=== PATIENT | female | born 1975 | race Two or more races ===

== ENCOUNTER 2025-04-07 12:46 | Emergency (ER) | payer OTHER ==
[~2025-04-07] VITALS: Ht 162.6 cm; Wt 133.7 kg
--- NOTE | 2025-04-07 13:00 | ED.PDOC ---
History of Present Illness HPI Comments 49-year-old female with PMHx Gastroparesis, HTN, PE presents with a chief complaint of weakness with associated nausea, vomiting, and diarrhea. Patient mentions that she is visiting [place] from [place] and does not have her Zofran with her. Patient also reports that she has potassium level issues and wants to check to make sure she is okay with her potassium levels. Time Seen by MD: 12:53 Reviewed Notes: Medications, Allergies Allergies: Coded Allergies: NO KNOWN ALLERGIES (Unverified , 04/07/25) Home Meds Active Scripts Ondansetron Odt 4MG Tab (ZOFRAN PO) 4 Mg Tb, 4 MG PO BS for 10 Days, #10 TAB ODT TAB-DISSOLVE IN MOUTH, THEN SWALLOW Prov:SARINA MEDRANO MD 04/07/25 Information Source: Patient Mode of Arrival: Ambulatory Severity: Moderate Timing: Days Duration: Since onset Prehospital treatment: None Past Medical History PAST MEDICAL HISTORY: HTN, PE Past Medical History (Other): Gastroporesis Surgical History: Cholecystectomy Surgical History (Other): Knee Replacement DIGITAL DIRECTOR History: Denies all DIGITAL DIRECTOR Hx Family History Family History: Reviewed,noncontributory to illness Social History Smoker: Non-Smoker Alcohol: Denies ETOH Use Drugs: Denies Drug Use Lives In: Home Constitutional: reports: weakness; denies: chills, diaphoresis, fatigue, fever, malaise, sweats, others EENTM: denies: blurred vision, double vision, ear bleeding, ear discharge, ear drainage, ear pain, ear ringing, eye pain, eye redness, hearing loss, mouth pain, mouth swelling, nasal discharge, nose bleeding, nose congestion, nose pain, photophobia, tearing, throat pain, throat swelling, voice changes, others Respiratory: denies: cough, hemoptysis, orthopnea, SOB at rest, shortness of breath, SOB with excertion, stridor, wheezing, others Cardiovascular: denies: chest pain, dizzy spells, diaphoresis, Dyspnea on exertion, edema, irregular heart beat, left arm pain, lightheadedness, palpitations, PND, syncope, others Gastrointestinal: reports: diarrhea, nausea, vomiting; denies: abdomen distended, abdominal pain, blood streaked bowels, constipated, dysphagia, d ifficulty swallowing, hematemesis, melena, poor appetite, poor fluid intake, rectal bleeding, rectal pain, others Genitourinary: denies: abnormal vagina bleeding, burning, dyspareunia, dysuria, flank pain, frequency, hematuria, incontinence, pain, , vagina discharge, urgency, others Neurological: denies: dizziness, fainting, headache, left sided numbness, left sided weakness, numbness, paresthesia, pre-existing deficit, right sided numbness, right sided weakness, seizure, speech problems, tingling, tremors, weakness, others Musculoskeletal: denies: back pain, gout, joint pain, joint swelling, muscle pain, muscle stiffness, neck pain, others Integumetry: denies: bruises, change in color, change in hair/nails, dryness, laceration, lesions, lumps, rash, wounds, others Allergic/Immunocompromised: denies: Difficulty Healing, Frequent Infections, Hives, Itching, others Hematologic/Lymphatic: denies: anemia, blood clots, easy bleeding, easy bruising, swollen glands, others Endocrine: denies: excessive hunger, excessive sweating, excessive thirst, excessive urination, flushing, intolerance to cold, intolerance to heat, unexplained weight gain, unexplained weight loss, others Psychiatric: denies: anxiety, bipolar disorder, depression, hopeless, panic disorder, schizophrenia, sleepless, suicidal, others All Other Systems: Reviewed and Negative Physical Exam General Appearance: Moderate Distress, Obese HEENT: Normal ENT Inspection, Pharynx Normal, TMs Normal Neck: Full Range of Motion, Non-Tender, Normal, Normal Inspection Respiratory: Chest Non-Tender, Lungs Clear, No Accessory Muscle Use, No Resp iratory Distress, Normal Breath Sounds Cardiovascular: No Edema, No JVD, No Murmur, No Gallop, Normal Peripheral Pulses, Regular Rate/Rhythm Breast Exam: Deferred Gastrointestinal: No Organomegaly, Non Tender, No Pulsatile Mass, Normal Bowel Sounds, Soft Genitalia: Deferred Pelvic: Deferred Rectal: Deferred Extremities: No calf tenderness, Normal capillary refill, Normal inspection, Normal range of motion, Non-tender, No pedal edema Musculoskeletal : Apperance: Normal Neurologic: Alert, small engine technician II-XII nml as Tested, No Motor Deficits, Normal Affect, Normal Mood, No Sensory Deficits Cerebellar Function: Normal Reflexes: Normal Skin: Dry, Normal Color, Warm Peripheral Pulses: 3+ Radial (R), 3+ Radial (L) Lymphatic: No Adenopathy Was a procedure done? Was a procedure done?: No Differential Dx Considerations may include: Gastroparesis Electrolyte imbalance X-Ray, Labs, Meds, VS Vital Signs Date Time Temp Pulse Resp B/P (MAP) Pulse Ox O2 Delivery O2 Flow Rate FiO2 04/07/25 14:27 104 18 121/77 (92) 94 04/07/25 14:27 104 18 94 Room Air 04/07/25 13:10 98.3 109 20 132/81 (98) 99 98.3 Lab Test 04/07/25 13:05 Range/Units Sodium Level 139 136-145 mmol/L Potassium Level 3.8 3.5-5.1 mmol/L Chloride Level 102 98-107 mmol/L Carbon Dioxide Level 26 20-31 mmol/L Anion Gap 11 5-15 Blood Urea Nitrogen 15 9-23 mg/dL Creatinine 1.09 H 0.550-1.02 mg/dL Glomerular Filtration Rate Calc 62 >90 mL/min BUN/Creatinine Ratio 13.8 10.0-20.0 Serum Glucose 132 H 74-106 mg/dL Calcium Level 10.9 H 8.7-10.4 mg/dL Patient alert. Complaining of nausea vomiting. She does have this disorder which can lead to hypokalemia. Vitals stable. Answering questions. Ambulating. No sign of any distress. Establish intravenous access. Was given fluids. Was given Zofran. Explained to the patient. Was told to follow up with her primary care physician. Was told to come back if there is any problem. Time of 1ST Reevaluation: 13:23 Reevaluation 1ST: Improved Patient Education/Counseling: Diagnosis, Treatment, Need For Follow Up Family Education/Counseling: No Family Present SEPSIS Sepsis Screen Physician Orders Urinalysis (04/07/25 12:57) Vital Signs Date Time Temp Pulse Resp B/P (MAP) Pulse Ox O2 Delivery O2 Flow Rate FiO2 04/07/25 14:27 104 18 121/77 (92) 94 04/07/25 14:27 104 18 94 Room Air 04/07/25 13:10 98.3 109 20 132/81 (98) 99 98.3 Departure 1 Departure Time of Disposition: 13:02 Impression: Primary Impression: Gastroparesis Disposition: 01 HOME / SELF CARE / HOMELESS Condition: Good e-Prescriptions Ondansetron Odt 4MG Tab (ZOFRAN PO) 4 Mg Tb 4 MG PO BS for 10 Days, #10 TAB ODT TAB-DISSOLVE IN MOUTH, THEN SWALLOW Prov: SARINA MEDRANO MD 04/07/25 Discharged With: Self Critical Care Note Critical Care Time?: No Stability Stability form required: No Heart Score Heart Score: Heart Score Response (Comments) Value History N/A 0 EKG N/A 0 Age N/A 0 Risk Factors N/A 0 Troponin N/A 0 Total 0 I personally scribed for SARINA MEDRANO MD ([email or web address]) on 04/07/25 at 13:00. Electronically submitted by Sukhwinder Hurt ([email or web address]). SARINA MEDRANO MD Apr 07, 2025 13:00
[2025-04-07] MEDS ORDERED: ZOFR4T PO (13:03)
[2025-04-07 13:45] LABS: Chloride 102 mmol/L (98-107); Potassium 3.8 mmol/L (3.5-5.1); Sodium 139 mmol/L (136-145)
[2025-04-07 13:46] LABS: Anion Gap 11 (5-15); Carbon Dioxide 26 mmol/L (20-31)
[2025-04-07 13:52] LABS: BUN/Creatinine Ratio 13.8 (10.0-20.0); Blood Urea Nitrogen 15 mg/dL (9-23)
[2025-04-07 13:59] LABS: Calcium 10.9 mg/dL (8.7-10.4); Glucose 132 mg/dL (74-106)
[2025-04-07] MEDS: ONDANSETRON HCL 4 MG/2 ML VIAL IV ONE (14:59)
[2025-04-07] MEDS: SODIUM CHLORIDE 0.9% 1,000 ML IV ONE (15:00)
[2025-04-07 15:06] VITALS: PULSE 94; RESP 16; O2SAT 97
[2025-04-07] MEDS: HYDROcodone-ACET 10/325MG TAB PO ONE (15:19)
[2025-04-07 15:45] VITALS: BP 110/74; PULSE 76; RESP 16; TEMP 98.1; O2SAT 97
== END 2025-04-07 15:47 | disposition home or self-care (01) ==
LOC: ER 12:46
DX: K31.84 Gastroparesis (principal); I10 Essential (primary) hypertension; Z96.659 Presence of unspecified artificial knee joint; Z90.49 Acquired absence of other specified parts of digestive tract; Z79.899 Other long term (current) drug therapy
CPT/HCPCS: 36415; 80048; 96361; 96374; 99283; J2405; J7030

== ENCOUNTER 2025-04-09 00:46 | Emergency (ER) | payer OTHER ==
[~2025-04-09] VITALS: Ht 162.6 cm; Wt 134.5 kg
[~2025-04-09 00:46] MED LIST: ZOFR4T PO
[2025-04-09 00:56] VITALS: BP 116/77; PULSE 111; RESP 16; TEMP 98; O2SAT 96
[2025-04-09] MEDS ORDERED: HYDROmorphone HCL 2 MG/ML VL/or syr IM ONE (01:30)
[2025-04-09] MEDS ORDERED: METOCLOPRAMIDE HCL 5MG/ml INJ 2ml VIAL IM ONE (01:30)
[2025-04-09] MEDS: IOHEXOL 300 MG/ML 100ML BOTTLE IJ ONE (01:56)
== END 2025-04-09 02:21 | disposition left against medical advice (07) ==
LOC: ER 00:46
DX: R11.2 Nausea with vomiting, unspecified (principal); R19.7 Diarrhea, unspecified; Z53.21 Procedure and treatment not carried out due to patient leaving prior to being seen by health care provider

== ENCOUNTER 2025-04-10 20:40 | Inpatient (IN) | payer OTHER ==
[~2025-04-10] VITALS: Ht 162.6 cm; Wt 132.9 kg
--- NOTE | 2025-04-10 20:53 | ED.PDOC ---
SOB-HPI HPI Comments HPI: This is a 49 year old female RADHAA presenting to the ED with chief complaint of SOB. Patient reports that she has been experiencing SOB with associated nausea, body aches, chills, and poor appetite for the past 3 days. Patient relays that she was seen yesterday and on 04/07 for problems with her gastroparesis including abdominal pain, which has continued up until now, not resolving with Reglan or Zofran. EMS states that they provided the patient Zofr an on route to the ED. Patient notes that she has no sick contacts at home and she has been utilizing an inhaler with no relief in symptoms. Patient denies any chest pain, dizziness, headache, fever, cough, or vomiting. Initial Vitals BP: 113/65 HR: 109 RR: 16 O2 Sat: 93% on room air Temp: 98.0 F Past Medical history: HTN, Gastroparesis, PE x 2014 Past Surgical history: Cholecystectomy, Bilateral knee replacement, Left radial nerve surgery x2, Bilateral foot surgery Medications: Zofran, Reglan Social History: Denies smoking, ETOH, and drug use. Allergies: NKDA HPI: Poor Historian. Past Medical History: Past Surgical History: REVIEW OF SYSTEMS: CONSTITUTIONAL: Denies acute: fever, diaphoresis, generalized weakness. HEAD: Denies acute: headache, photophobia Eyes: Denies acute: Double vision, vision loss, eye pain, eye discharge. EARS: Denies acute: tinnitus, hearing loss, ear discharge, ear pain, THROAT: Denies acute: sore throat, swelling, difficulty swallowing , pain with sw allowing, change in voice. NECK: Denies acute: neck pain, neck swelling, stiff neck. HEART: Denies acute : chest pain, palpitations, LUNGS: Denies acute: wheezing, cough, hemoptysis ABDOMEN: Denies acute: Vomiting, diarrhea, melena , hematemesis, hematochezia SKIN: Denies acute: rash, redness, lesions, itchiness. EXTREMITIES: Denies acute: calf pain, numbness, tingling, weakness, denies pain in extremity. Denies acute: Low back pain. Neuro: Denies acute: focal neurological deficit, motor or sensory focal neurological deficit, tremors, seizure like activity, confusion, dizziness, change in mental status, loss of bowel or bladder function, cauda equina like symptoms. : Denies acute: dysuria, hematuria, flank pain, increase in urinary frequency. PSYCH: Denies acute: hallucination, suicidal ideation, homicidal ideation. FEMALE: Denies acute: abnormal vaginal bleeding, foul odor, unusual discharge. PHYSICAL EXAM: General: ----[id number]----acute distress, awake and alert. Head: normocephalic, atraumatic. Neck: supple, trachea is midline, no swelling. Throat: Normal phonation. Eyes:, no erythema, no purulent discharge, no proptosis, no icterus. Heart: regular tachycardia, no significant murmur appreciated. Lungs: no apparent respiratory distress, Able to speak in full sentences. No wheezing, no rhonchi, no crackles. No stridors Clear to auscultation bilaterally. Abdomen: Nonspecific generalized tender to palpation, non distended, soft, no guarding, no rebound, + bowel sounds. Obese Neuro: Awake, Alert, oriented to name, self, situation, follows commands GCS=15. Speech is normal. Skin: no petechia, no purpura, no cyanosis, non-pale, not jaundice. Lower extremities: --no - Pitting edema no deformity, no focal swelling, no calf TTP. Makes eye contact. moves all four extremities. Face: no apparent facial droop. ED COURSE: DISCLAIMER: This medical document was created using an electronic medical record system with voice recognition software and computerized dictation system. Although this document has been carefully reviewed, there might still be some phonetic and typographical errors. Occasional wrong-word or "sound-alike" substitutions may have occurred due to the inherent limitations of voice recognition software. These areas are purely typographical due to imperfections of the software programs and do not reflect any compromise in the patient's medical care. Please read the chart carefully and recognize, using context, where these substitutions have occurred. Time Seen by MD: 20:50 Reviewed notes: Medications, Allergies Information Source: Patient, Emergency Med Personnel Mode of Arrival: EMS Was a procedure done? Was a procedure done?: No X-Ray, Labs, Meds, VS Vital Signs Date Time Temp Pulse Resp B/P (MAP) Pulse Ox O2 Delivery O2 Flow Rate FiO2 04/10/25 23:48 97.9 105 14 130/70 (90) 92 97.9 04/10/25 20:52 98.0 116 16 113/65 (81) 93 98.0 04/10/25 20:44 109 Lab Test 04/11/25 00:35 04/11/25 00:30 04/11/25 00:22 04/10/25 22:44 Range/Units Urine Color Yellow Yellow Urine Clarity Ex.turbid Clear Urine pH 6.0 5.0-9.0 Urine Specific [place] 1.032 1.001-1.035 Urine Protein 2+ H Negative Urine Ketones 2+ H Negative Urine Blood 1+ H Negative /uL Urine Nitrite Negative Negative Urine Bilirubin 1+ H Negative Urine Urobilinogen 4 H Negative mg/dL Urine Leukocyte Esterase Trace Negative /uL Urine RBC 65 0 - 4 /hpf Urine Microscopic WBC 22 H 0-5 /HPF Urine Squamous Epithelial Cells Mod <5 /hpf Urine Bacteria None seen None Seen /hpf Urine Hyaline Casts Many 0 - 2 /lpf Urine Mucus Few None Seen Urine Glucose Normal Normal mg/dL Influenza Type A Antigen Negative Negative Influenza Type B Antigen Negative Negative SARS-CoV-2 Antigen (Rapid) Negative NEGATIVE Troponin I High Sensitivity 4 5 </=34 ng/L Test 04/10/25 21:47 Range/Units White Blood Count 17.9 H 4.4-10.8 10^3/uL Red Blood Count 6.11 H 4.0-5.20 10^6/uL Hemoglobin 15.8 12.2-16.2 g/dL Hematocrit 48.2 H 36.0-46.0 % Mean Corpuscular Volume 78.9 L 80.0-100.0 fL Mean Corpuscular Hemoglobin 25.8 L 28.0-32.0 pg Mean Corpuscular Hemoglobin Concent 32.7 32.0-36.0 g/dL Red Cell Distribution Width 17.6 H 11.8-14.3 % Platelet Count 483 H 140-450 10^3/uL Mean Platelet Volume 7.7 6.9-10.8 fL Neutrophils (%) (Auto) 84.7 H 37.0-80.0 % Lymphocytes (%) (Auto) 11.7 10.0-50.0 % Monocytes (%) (Auto) 3.3 0.0-12.0 % Eosinophils (%) (Auto) 0.0 0.0-7.0 % Basophils (%) (Auto) 0.3 0.0-2.0 % Neutrophils # (Auto) 15.1 H 1.6-8.6 10 ^3/uL Lymphocytes # (Auto) 2.1 0.4-5.4 10 ^3/uL Monocytes # (Auto) 0.6 0-1.3 10 ^3/uL Eosinophils # (Auto) 0 0-0.8 10 ^3/uL Basophils # (Auto) 0.1 0-0.2 10 ^3/uL Nucleated Red Blood Cells 0.0 % Sodium Level 138 136-145 mmol/L Potassium Level 3.2 L 3.5-5.1 mmol/L Chloride Level 99 98-107 mmol/L Carbon Dioxide Level 24 20-31 mmol/L Anion Gap 15 5-15 Blood Urea Nitrogen 20 9-23 mg/dL Creatinine 1.57 #H 0.550-1.02 mg/dL Glomerular Filtration Rate Calc 40 >90 mL/min BUN/Creatinine Ratio 12.7 10.0-20.0 Serum Glucose 128 H 74-106 mg/dL Lactic Acid Level 1.4 0.4-2.0 mmol/L Calcium Level 11.4 H 8.7-10.4 mg/dL Magnesium Level 1.9 1.6-2.6 mg/dL Total Bilirubin 0.4 0.2-1.0 mg/dL Aspartate Amino Transferase (AST) 29 13-40 U/L Alanine Aminotransferase (ALT) 33 7-40 U/L Alkaline Phosphatase 120 H 46-116 U/L Troponin I High Sensitivity 5 </=34 ng/L B-Type Natriuretic Peptide 3.46 0-100 pg/mL Total Protein 8.7 H 5.7-8.2 g/dL Albumin 5.5 H 3.2-4.8 g/dL Lipase 43 12-53 U/L Current Medications Medications (Trade) Dose Ordered Sig/Nikhil Route Start Time Stop Time Status Last Admin Sodium Chloride 1,000 ml @ 1,000 mls/hr Q1H ONCE IV 04/10/25 21:30 04/10/25 22:29 DC 04/10/25 22:35 Metoclopramide HCl (Reglan Injection) 5 mg ONCE ONCE IV 04/10/25 21:30 04/10/25 21:31 DC 04/10/25 22:32 [place] [address] Ph: [phone] DIAGNOSTIC IMAGING Diagnostic Imaging Report : [id number] Signed PATIENT: ESPERANZA HERNANDEZ ACCT: [id number] UNIT: [id number] : 1975 LOC: ER ROOM / BED: / AGE / SEX: 49 / F ADM STATUS: REG ER SERVICE 22 ORDERING PHYSICIAN: WESLEY MACIAS DO PROCEDURE(s): CXRP - CHEST PORTABLE REASON: sob/resp symptoms ORDER NUMBER(s): [id number], ACCESSION NUMBER(s): [id number] CHEST RADIOGRAPH Indication: sob/resp symptoms Technique: Single frontal view of the chest was obtained Comparison: None FINDINGS: Lines and Tubes: None Lungs: No focal consolidation. Pleura: No effusion. No pneumothorax. Cardiomediastinal contours: Unremarkable Bones: No acute osseous abnormality. IMPRESSION: 1. No acute cardiopulmonary disease. ATED BY: ALBERTINA KRAMER Jr., DO DICTATED DATE/TIME: 04/10/252252 SIGNED BY: ALBERTINA KRAMER Jr., SIGNED DATE/TIME: 04/10/252252 CC: [place] [address] Ph: [phone] DIAGNOSTIC IMAGING Diagnostic Imaging Report : [id number] Signed PATIENT: ESPERANZA HERNANDEZ ACCT: [id number] UNIT: [id number] : 1975 LOC: ER ROOM / BED: / AGE / SEX: 49 / F ADM STATUS: REG ER SERVICE 22 ORDERING PHYSICIAN: WESLEY MACIAS DO PROCEDURE(s): ABPL - CT AB PEL WO CON-NO ORAL OR IV REASON: gastroparesis, nausea, abd pain ORDER NUMBER(s): [id number], ACCESSION NUMBER(s): [id number] Exam: CT CT AB PEL WO CON-NO ORAL OR IV History: gastroparesis, nausea, abd pain Comparison Study: None Technique: Multidetector spiral CT of the abdomen was performed from lung bases to pubic symphysis. Imaging was performed without IV contrast. Axial, coronal and sagittal multiplanar reformats were obtained from the axial data set by the technologist. Radiation Dose : 1. Abdomen/Pelvis: CTDIvol 27.11 mGy, DLP 1518.04 mGy*cm. Findings: Evaluation of solid organs is limited due to lack of intravenous contrast use. Lung Bases: No acute or significant lung base finding. Normal heart size. No pleural or pericardial effusion. Liver: The liver is enlarged, measuring 19.5 cm in craniocaudal dimension.. No focal lesions. Gallbladder and Biliary Tree: Status post cholecystectomy. Spleen: Unremarkable Pancreas: The pancreas is grossly normal in appearance. Adrenal Glands: Unremarkable Kidneys: Kidneys are grossly normal without calculi or hydronephrosis. Bladder: Grossly unremarkable for degree of distention. Bowel: Small hiatal hernia and fluid-filled distal esophagus. The stomach is grossly normal in appearance. Small bowel and colon are normal in caliber and distribution. The appendix is not visualized; however, no secondary findings of acute appendicitis identified. Ascites: Absent Lymphadenopathy: No mesenteric, retroperitoneal or periportal lymphadenopathy. Abdominal Wall and Mesentery: Unremarkable. Vasculature: The visualized abdominal aorta is normal in size and caliber. Evaluation of abdominal and pelvic vessels is limited due to lack of intravenous contrast. Pelvic Organs: Unremarkable Musculoskeletal: No aggressive focal bony lesions, acute fractures or dislocation. IMPRESSION: 1. No acute abdominal or pelvic findings. 2. Hepatomegaly. 3. Small hiatal hernia and fluid-filled distal esophagus. Radiation optimization: All CT scans at this facility use at least one of these dose optimization techniques: automated exposure control mA and/or kV adjustment per patient size (includes targeted exams where dose is matched to clinical indication) or iterative reconstruction. ATED BY: RONAK COFFEY MD DICTATED DATE/TIME: 04/10/252317 SIGNED BY: RONAK COFFEY MD SIGNED DATE/TIME: 04/10/252317 CC: Reevaluation 1ST: Unchanged Patient Education/Counseling: Diagnosis, Treatment Family Education/Counseling: No Family Present Departure 1 Departure Time of Disposition: 23:37 Impression: Primary Impression: Leukocytosis Additional Impressions: Abdominal pain UTI (urinary tract infection) Disposition: ADMITTED INPATIENT Admit to: Tele Condition: Guarded Discharged With: Self Critical Care Note Critical Care Time?: No I personally scribed for WESLEY MACIAS DO ([email or web address]) on 04/10/25 at 20:53. Electronically submitted by Jerome Porras ([email or web address]). I personally scribed for WESLEY MACIAS DO ([email or web address]) on 04/11/25 at 01:35. Electronically submitted by Gene Centeno ([email or web address]). WESLEY MACIAS DO Apr 10, 2025 20:53
[2025-04-10 22:11] LABS: Hematocrit 48.2 % (36.0-46.0); Hemoglobin 15.8 g/dL (12.2-16.2); Mean Corpuscular Hemoglobin 25.8 pg (28.0-32.0); Mean Corpuscular Volume 78.9 fL (80.0-100.0); Nucleated Red Blood Cells % 0.0 %
[2025-04-10 22:26] LABS: Alanine Aminotransferase 33 U/L (7-40); Anion Gap 15 (5-15); BUN/Creatinine Ratio 12.7 (10.0-20.0); Bilirubin, Total 0.4 mg/dL (0.2-1.0); Blood Urea Nitrogen 20 mg/dL (9-23); Carbon Dioxide 24 mmol/L (20-31); Chloride 99 mmol/L (98-107); Magnesium 1.9 mg/dL (1.6-2.6); Sodium 138 mmol/L (136-145)
[2025-04-10 22:27] LABS: Albumin 5.5 g/dL (3.2-4.8); Alkaline Phosphatase 120 U/L (46-116); Calcium 11.4 mg/dL (8.7-10.4); Glucose 128 mg/dL (74-106); Potassium 3.2 mmol/L (3.5-5.1); Total Protein 8.7 g/dL (5.7-8.2)
[2025-04-10] MEDS: METOCLOPRAMIDE HCL 5MG/ml INJ 2ml VIAL IV ONE (22:32)
[2025-04-10] MEDS: SODIUM CHLORIDE 0.9% 1,000 ML IV ONE (22:35)
--- NOTE | 2025-04-10 22:55 | DVH ---
CHEST RADIOGRAPH Indication: sob/resp symptoms Technique: Single frontal view of the chest was obtained Comparison: None FINDINGS: Lines and Tubes: None Lungs: No focal consolidation. Pleura: No effusion. No pneumothorax. Cardiomediastinal contours: Unremarkable Bones: No acute osseous abnormality. IMPRESSION: 1. No acute cardiopulmonary disease.
--- NOTE | 2025-04-10 23:21 | DVH ---
Exam: CT CT AB PEL WO CON-NO ORAL OR IV History: gastroparesis, nausea, abd pain Comparison Study: None Technique: Multidetector spiral CT of the abdomen was performed from lung bases to pubic symphysis. I maging was performed without IV contrast. Axial, coronal and sagittal multiplanar reformats were obta ined from the axial data set by the technologist. Radiation Dose : 1. Abdomen/Pelvis: CTDIvol 27.11 mGy, DLP 1518.04 mGy*cm. Findings: Evaluation of solid organs is limited due to lack of intravenous contrast use. Lung Bases: No acute or significant lung base finding. Normal heart size. No pleural or pericardial effusion. Liver: The liver is enlarged, measuring 19.5 cm in craniocaudal dimension.. No focal lesions. Gallbladder and Biliary Tree: Status post cholecystectomy. Spleen: Unremarkable Pancreas: The pancreas is grossly normal in appearance. Adrenal Glands: Unremarkable Kidneys: Kidneys are grossly normal without calculi or hydronephrosis. Bladder: Grossly unremarkable for degree of distention. Bowel: Small hiatal hernia and fluid-filled distal esophagus. The stomach is grossly normal in appear ance. Small bowel and colon are normal in caliber and distribution. The appendix is not visualized; h owever, no secondary findings of acute appendicitis identified. Ascites: Absent Lymphadenopathy: No mesenteric, retroperitoneal or periportal lymphadenopathy. Abdominal Wall and Mesentery: Unremarkable. Vasculature: The visualized abdominal aorta is normal in size and caliber. Evaluation of abdominal a nd pelvic vessels is limited due to lack of intravenous contrast. Pelvic Organs: Unremarkable Musculoskeletal: No aggressive focal bony lesions, acute fractures or dislocation. IMPRESSION: 1. No acute abdominal or pelvic findings. 2. Hepatomegaly. 3. Small hiatal hernia and fluid-filled distal esophagus. Radiation optimization: All CT scans at this facility use at least one of these dose optimization tad hniques: automated exposure control mA and/or kV adjustment per patient size (includes targeted exam s where dose is matched to clinical indication) or iterative reconstruction.
[2025-04-10] MEDS: fentaNYL CITRATE 100 MCG/2 ML VL IV ONE (23:45)
[2025-04-11 01:14] LABS: Urine Protein, UAD 2+ (Negative)
[2025-04-11 01:20] LABS: COVID19 ANTIGEN SOFIA FIA NEGATIVE (NEGATIVE)
[2025-04-11] MEDS: POTASSIUM CHL 20 Meq TABLET PO ONE (03:48)
[2025-04-11] MEDS: HYDROcodone-ACET 5/325MG TAB PO ONE (03:48)
[2025-04-11] MEDS: cefTRIAXone 1GM/50ML D5W 50 ML IV ONE (03:48)
--- NOTE | 2025-04-11 03:57 | DVHHP2 ---
History of Present Illness Reason for Visit: Abdominal pain History of Present Illness 49-year-old female presents for evaluation of abdominal pain. Patient with a history of gastroparesis reports a three day history of lower abdominal pain with associated nausea, vomiting and diarrhea. Reports occasional chills. No hematemesis or melena. No other acute complaints. Past Medical History Diabetes mellitus, gastroparesis, hypertension Past Surgical History Bilateral knee replacement, cholecystectomy, foot surgery Smoke: No ALCOHOL: none Drugs: None Lives: with Family Review of Systems Review of Systems Review of systems are currently negative otherwise addressed in HPI. Allergies: Coded Allergies: Ketorolac (Verified Allergy, Severe, hives, 04/07/25) Morphine (Verified Allergy, Severe, hives, 04/07/25) Medications Current Medications Medications Dose Ordered Sig/Nikhil Route Start Time Stop Time Status Last Admin Dose Admin Metoclopramide HCl 5 mg Q8HR IV 04/11/25 06:00 UNV Ondansetron HCl 4 mg Q6HPRN PRN IV 04/11/25 04:00 UNV Diagnostic Test (Pha) 1 strip ACHS 04/11/25 07:00 UNV Insulin Human Regular ACHS SC 04/11/25 07:00 UNV Dextrose 50 ml UD PRN IV 04/11/25 04:00 UNV Acetaminophen/ Hydrocodone Bitart 1 tab Q4HP PRN PO 04/11/25 04:00 UNV Temazepam 15 mg QHSP PRN PO 04/11/25 04:00 UNV Ondansetron HCl 4 mg Q4HP PRN IV 04/11/25 04:00 UNV Acetaminophen 650 mg Q6HP PRN PO 04/11/25 04:00 UNV Pantoprazole Sodium 40 mg DAILY IV 04/11/25 10:00 UNV Exam Vital Signs Vital Signs Date Time Temp Pulse Resp B/P (MAP) Pulse Ox O2 Delivery O2 Flow Rate FiO2 04/11/25 03:34 100 14 94 Room Air 04/11/25 03:34 97.8 142/84 (103) 97.8 Exam Gen: 49-year-old female in mild distress Skin: Warm, dry, normal color and texture, no rash. HEENT: Normocephalic atraumatic, mucous membranes moist and pink. Neck: Cervical and supraclavicular nodes normal without enlargement, trachea is midline, thyroid gland is normal without masses. Pulmonary: Clear to auscultation and percussion bilaterally. Cardiac: Regular rate and rhythm. No murmur Abdomen: Soft, lower abdominal tenderness, nondistended, bowel sounds present all 4 quadrants, no guarding, no rigidity, no organomegaly. Extremities: No cyanosis, clubbing, no edema Neuro: Cranial nerves II through XII grossly intact, normal affect and speech, no focal motor deficits. Labs/Xrays ORDERING PHYSICIAN: WESLEY MACIAS DO PROCEDURE(s): CXRP - CHEST PORTABLE REASON: sob/resp symptoms ORDER NUMBER(s): [id number], ACCESSION NUMBER(s): [id number] CHEST RADIOGRAPH Indication: sob/resp symptoms Technique: Single frontal view of the chest was obtained Comparison: None FINDINGS: Lines and Tubes: None Lungs: No focal consolidation. Pleura: No effusion. No pneumothorax. Cardiomediastinal contours: Unremarkable Bones: No acute osseous abnormality. IMPRESSION: 1. No acute cardiopulmonary disease. RING PHYSICIAN: WESLEY MACIAS DO PROCEDURE(s): ABPL - CT AB PEL WO CON-NO ORAL OR IV REASON: gastroparesis, nausea, abd pain ORDER NUMBER(s): [id number], ACCESSION NUMBER(s): [id number] Exam: CT CT AB PEL WO CON-NO ORAL OR IV History: gastroparesis, nausea, abd pain Comparison Study: None Technique: Multidetector spiral CT of the abdomen was performed from lung bases to pubic symphysis. Imaging was performed without IV contrast. Axial, coronal and sagittal multiplanar reformats were obtained from the axial data set by the technologist. Radiation Dose : 1. Abdomen/Pelvis: CTDIvol 27.11 mGy, DLP 1518.04 mGy*cm. Findings: Evaluation of solid organs is limited due to lack of intravenous contrast use. Lung Bases: No acute or significant lung base finding. Normal heart size. No pleural or pericardial effusion. Liver: The liver is enlarged, measuring 19.5 cm in craniocaudal dimension.. No focal lesions. Gallbladder and Biliary Tree: Status post cholecystectomy. Spleen: Unremarkable Pancreas: The pancreas is grossly normal in appearance. Adrenal Glands: Unremarkable Kidneys: Kidneys are grossly normal without calculi or hydronephrosis. Bladder: Grossly unremarkable for degree of distention. Bowel: Small hiatal hernia and fluid-filled distal esophagus. The stomach is grossly normal in appearance. Small bowel and colon are normal in caliber and distribution. The appendix is not visualized; however, no secondary findings of acute appendicitis identified. Ascites: Absent Lymphadenopathy: No mesenteric, retroperitoneal or periportal lymphadenopathy. Abdominal Wall and Mesentery: Unremarkable. Vasculature: The visualized abdominal aorta is normal in size and caliber. Evaluation of abdominal and pelvic vessels is limited due to lack of intravenous contrast. Pelvic Organs: Unremarkable Musculoskeletal: No aggressive focal bony lesions, acute fractures or dislocation. IMPRESSION: 1. No acute abdominal or pelvic findings. 2. Hepatomegaly. 3. Small hiatal hernia and fluid-filled distal esophagus. Radiation optimization: All CT scans at this facility use at least one of these dose optimization techniques: automated exposure control mA and/or kV adjustment per patient size (includes targeted exams where dose is matched to cl inical indication) or iterative reconstruction. Labs Test 04/11/25 00:35 04/11/25 00:30 04/11/25 00:22 04/10/25 21:47 Range/Units Urine Color Yellow Yellow Urine Clarity Ex.turbid Clear Urine pH 6.0 5.0-9.0 Urine Specific [place] 1.032 1.001-1.035 Urine Protein 2+ H Negative Urine Ketones 2+ H Negative Urine Blood 1+ H Negative /uL Urine Nitrite Negative Negative Urine Bilirubin 1+ H Negative Urine Urobilinogen 4 H Negative mg/dL Urine Leukocyte Esterase Trace Negative /uL Urine RBC 65 0 - 4 /hpf Urine Microscopic WBC 22 H 0-5 /HPF Urine Squamous Epithelial Cells Mod <5 /hpf Urine Bacteria None seen None Seen /hpf Urine Hyaline Casts Many 0 - 2 /lpf Urine Mucus Few None Seen Urine Glucose Normal Normal mg/dL Influenza Type A Antigen Negative Negative Influenza Type B Antigen Negative Negative SARS-CoV-2 Antigen (Rapid) Negative NEGATIVE Troponin I High Sensitivity 4 </=34 ng/L White Blood Count 17.9 H 4.4-10.8 10^3/uL Red Blood Count 6.11 H 4.0-5.20 10^6/uL Hemoglobin 15.8 12.2-16.2 g/dL Hematocrit 48.2 H 36.0-46.0 % Mean Corpuscular Volume 78.9 L 80.0-100.0 fL Mean Corpuscular Hemoglobin 25.8 L 28.0-32.0 pg Mean Corpuscular Hemoglobin Concent 32.7 32.0-36.0 g/dL Red Cell Distribution Width 17.6 H 11.8-14.3 % Platelet Count 483 H 140-450 10^3/uL Mean Platelet Volume 7.7 6.9-10.8 fL Neutrophils (%) (Auto) 84.7 H 37.0-80.0 % Lymphocytes (%) (Auto) 11.7 10.0-50.0 % Monocytes (%) (Auto) 3.3 0.0-12.0 % Eosinophils (%) (Auto) 0.0 0.0-7.0 % Basophils (%) (Auto) 0.3 0.0-2.0 % Neutrophils # (Auto) 15.1 H 1.6-8.6 10 ^3/uL Lymphocytes # (Auto) 2.1 0.4-5.4 10 ^3/uL Monocytes # (Auto) 0.6 0-1.3 10 ^3/uL Eosinophils # (Auto) 0 0-0.8 10 ^3/uL Basophils # (Auto) 0.1 0-0.2 10 ^3/uL Nucleated Red Blood Cells 0.0 % Sodium Level 138 136-145 mmol/L Potassium Level 3.2 L 3.5-5.1 mmol/L Chloride Level 99 98-107 mmol/L Carbon Dioxide Level 24 20-31 mmol/L Anion Gap 15 5-15 Blood Urea Nitrogen 20 9-23 mg/dL Creatinine 1.57 #H 0.550-1.02 mg/dL Glomerular Filtration Rate Calc 40 >90 mL/min BUN/Creatinine Ratio 12.7 10.0-20.0 Serum Glucose 128 H 74-106 mg/dL Lactic Acid Level 1.4 0.4-2.0 mmol/L Calcium Level 11.4 H 8.7-10.4 mg/dL Magnesium Level 1.9 1.6-2.6 mg/dL Total Bilirubin 0.4 0.2-1.0 mg/dL Aspartate Amino Transferase (AST) 29 13-40 U/L Alanine Aminotransferase (ALT) 33 7-40 U/L Alkaline Phosphatase 120 H 46-116 U/L B-Type Natriuretic Peptide 3.46 0-100 pg/mL Total Protein 8.7 H 5.7-8.2 g/dL Albumin 5.5 H 3.2-4.8 g/dL Lipase 43 12-53 U/L Assessment/Plan Assessment/Plan Assessment Acute abdominal pain Gastroparesis Diabetes mellitus Acute kidney injury Electrolyte imbalance Leukocytosis Plan Admit the patient to [facility] to the hospitalist GI consultation Clear liquid diet Pain management Resume home medications Continue treatment per orders. Plan discussed with: Patient My Orders Orders - KAROLINA KLEIN Procedure Category Date Status Time * Gi Dvh [employer] CONS 04/11/25 Transmitted 03:47 NS PHA 04/11/25 Transmitted 04:00 Lisinopril Tablet PHA 04/11/25 Transmitted (Zestril Tablet) 10:00 Lamotrigine Tablet PHA 04/11/25 Transmitted (Lamictal Tablet) 10:00 Metoclopramide PHA 04/11/25 Transmitted Injection (Reglan 06:00 Ondansetron Hcl PHA 04/11/25 Transmitted (Zofran) 04:00 Basic Metabolic Panel LAB 04/12/25 Verified 04:00 Glucose Blood PHA 04/11/25 Transmitted (Accu-Chek Comfort 07:00 Mild Sliding Scale PHA 04/11/25 Transmitted 07:00 Dextrose 50% Syringe PHA 04/11/25 Transmitted 04:00 Admit ADMIT 04/11/25 Transmitted 03:47 Hydrocodone-Acet PHA 04/11/25 Transmitted 5/325mg Tab ([place] 04:00 Temazepam (Restoril) PHA 04/11/25 Transmitted 04:00 Ondansetron Hcl PHA 04/11/25 Transmitted (Zofran) 04:00 Complete Blood Count LAB 04/12/25 Verified 04:00 Condition: Stable HIGINIO 04/11/25 Transmitted 03:47 Acetaminophen Tablet PHA 04/11/25 Transmitted (Tylenol Tablet) 04:00 Clear Liq Diet DIET 04/11/25 Transmitted Breakfast Bedrest With Bathroom HIGINIO 04/11/25 Transmitted Privileg 03:47 Pantoprazole PHA 04/11/25 Transmitted (Protonix) 10:00 Date of Service: Apr 11, 2025 Billing Provider: KLEIN,KOBY AGACNP Common Visit Codes: [id number] INP/OBS CARE (MOD) KAROLINA KLEIN [facility] Apr 11, 2025 03:57
[2025-04-11] MEDS ORDERED: DEXTROSE (50%) 50ML SYRG IV PRN (04:00)
[2025-04-11] MEDS ORDERED: ACETAMINOPHEN 325 MG TAB PO PRN (04:00)
[2025-04-11] MEDS ORDERED: ONDANSETRON HCL 4 MG/2 ML VIAL IV PRN ×2 (04:00)
[2025-04-11] MEDS ORDERED: TEMAZEPAM 15 MG CAP PO PRN (04:00)
[2025-04-11] MEDS: SODIUM CHLORIDE 0.9% 500 ML IV ONE (04:01)
--- NOTE | 2025-04-11 05:48 | ECG ---
[facility] Test Date: 2025-04-10 Test Time: 20:44:33 Pat Name: ESPERANZA HERNANDEZ Department: ED Room: 024[facility] Gender: F Paper Folder: STEPHANIE : 1975 Requested By: WESLEY MACIAS Order Number: [id number] Reading MD: Donny Cole Measurements Intervals [place] Rate: 109 P: 24 VA: 149 QRS: -89 QRSD: 90 T: 53 QT: 335 QTc: 452 Interpretive Statements Sinus tachycardia RSR' in V1 or V2, right VCD or RVH Inferior infarct, old Consider anterior infarct Electronically Signed On 04-12-2025 19:04:08 PDT by Donny Cole Please click the below link to view image of tracing.
[2025-04-11] MEDS: METOCLOPRAMIDE HCL 5MG/ml INJ 2ml VIAL IV SCH (06:39)
[2025-04-11] MEDS: PANTOPRAZOLE 40 MG/10 ML VIAL INJ IV SCH (07:32)
[2025-04-11] MEDS: LISINOPRIL 20 MG TAB PO SCH (07:32)
[2025-04-11] MEDS: LOPERAMIDE HCL 2 MG CAP/TAB PO PRN (07:32)
[2025-04-11] MEDS: HYDROcodone-ACET 5/325MG TAB PO PRN (07:33)
[2025-04-11] MEDS: lamoTRIgine 25 MG TAB PO SCH (07:33)
[2025-04-11] MEDS: InsuLIN REG 1unit/0.01ml Soln (100units/ml) SC SCH (07:36)
[2025-04-11] MEDS: ACCU-CHEK COMFORT CURVE STRIP VI SCH (07:37)
[2025-04-11 07:43] VITALS: PULSE 84; RESP 19; O2SAT 96
--- NOTE | 2025-04-11 13:15 | DVHINCON2 ---
GI Consult Consult Note GI consult note Date of Consultation: 04/11/2025 Chief Complaint: Abdominal pain, gastroparesis Referring Physician: Sergio CAMPOS H&P: 49-year-old female presented to ER for evaluation of abdominal pain, mostly periumbilical to lower abdomen, started 4-5 days ago. Patient is in ER lobby. Patient is from [place] and here to visit family. Patient also complains of nausea vomiting, denies hematemesis. Patient having multiple watery loose stools, black in color. Patient has a history of loose stool stents being treated with metformin. Also admits to take Pepto-Bismol 4-5 days ago. Patient diagnosed with gastroparesis treated with Reglan 5 mg 4 times a day. Status post EGD and colonoscopy in September 2024, diagnosed with esophagitis and hemorrhoids Past Medical History: Diabetes mellitus, gastroparesis, hypertension Past Surgical History: Bilateral knee replacement, cholecystectomy, foot surgery Social History: NO smoking, drinking ETOH and use of illegal drugs. Family History: Noncontributory Review of Systems: Constitutional: no fever, chill, weight loss HEENT: no eye pain, no hearing loss, no oral lesion, no scleral icterus Heart: no chest pain, no chest pressure Lung: no cough, no dyspnea with exertion Abdomen: see HPI Physical exam: General: NAD, AAOX3 Chest: lung brown clear to auscultation Heart: RRR, no murmur Abdomen: Mild periumbilical tenderness to palpation, +BS Labs: Labs Test 04/11/25 11:10 04/11/25 00:35 04/11/25 00:30 04/11/25 00:22 Range/Units POC Glucose 119 H 70-106 mg/dl Urine Color Yellow Yellow Urine Clarity Ex.turbid Clear Urine pH 6.0 5.0-9.0 Urine Specific [place] 1.032 1.001-1.035 Urine Protein 2+ H Negative Urine Ketones 2+ H Negative Urine Blood 1+ H Negative /uL Urine Nitrite Negative Negative Urine Bilirubin 1+ H Negative Urine Urobilinogen 4 H Negative mg/dL Urine Leukocyte Esterase Trace Negative /uL Urine RBC 65 0 - 4 /hpf Urine Microscopic WBC 22 H 0-5 /HPF Urine Squamous Epithelial Cells Mod <5 /hpf Urine Bacteria None seen None Seen /hpf Urine Hyaline Casts Many 0 - 2 /lpf Urine Mucus Few None Seen Urine Glucose Normal Normal mg/dL Influenza Type A Antigen Negative Negative Influenza Type B Antigen Negative Negative SARS-CoV-2 Antigen (Rapid) Negative NEGATIVE Troponin I High Sensitivity 4 </=34 ng/L Test 04/10/25 21:47 Range/Units White Blood Count 17.9 H 4.4-10.8 10^3/uL Red Blood Count 6.11 H 4.0-5.20 10^6/uL Hemoglobin 15.8 12.2-16.2 g/dL Hematocrit 48.2 H 36.0-46.0 % Mean Corpuscular Volume 78.9 L 80.0-100.0 fL Mean Corpuscular Hemoglobin 25.8 L 28.0-32.0 pg Mean Corpuscular Hemoglobin Concent 32.7 32.0-36.0 g/dL Red Cell Distribution Width 17.6 H 11.8-14.3 % Platelet Count 483 H 140-450 10^3/uL Mean Platelet Volume 7.7 6.9-10.8 fL Neutrophils (%) (Auto) 84.7 H 37.0-80.0 % Lymphocytes (%) (Auto) 11.7 10.0-50.0 % Monocytes (%) (Auto) 3.3 0.0-12.0 % Eosinophils (%) (Auto) 0.0 0.0-7.0 % Basophils (%) (Auto) 0.3 0.0-2.0 % Neutrophils # (Auto) 15.1 H 1.6-8.6 10 ^3/uL Lymphocytes # (Auto) 2.1 0.4-5.4 10 ^3/uL Monocytes # (Auto) 0.6 0-1.3 10 ^3/uL Eosinophils # (Auto) 0 0-0.8 10 ^3/uL Basophils # (Auto) 0.1 0-0.2 10 ^3/uL Nucleated Red Blood Cells 0.0 % Sodium Level 138 136-145 mmol/L Potassium Level 3.2 L 3.5-5.1 mmol/L Chloride Level 99 98-107 mmol/L Carbon Dioxide Level 24 20-31 mmol/L Anion Gap 15 5-15 Blood Urea Nitrogen 20 9-23 mg/dL Creatinine 1.57 #H 0.550-1.02 mg/dL Glomerular Filtration Rate Calc 40 >90 mL/min BUN/Creatinine Ratio 12.7 10.0-20.0 Serum Glucose 128 H 74-106 mg/dL Lactic Acid Level 1.4 0.4-2.0 mmol/L Calcium Level 11.4 H 8.7-10.4 mg/dL Magnesium Level 1.9 1.6-2.6 mg/dL Total Bilirubin 0.4 0.2-1.0 mg/dL Aspartate Amino Transferase (AST) 29 13-40 U/L Alanine Aminotransferase (ALT) 33 7-40 U/L Alkaline Phosphatase 120 H 46-116 U/L B-Type Natriuretic Peptide 3.46 0-100 pg/mL Total Protein 8.7 H 5.7-8.2 g/dL Albumin 5.5 H 3.2-4.8 g/dL Lipase 43 12-53 U/L Imaging: CT abdomen pelvis IMPRESSION: 1. No acute abdominal or pelvic findings. 2. Hepatomegaly. 3. Small hiatal hernia and fluid-filled distal esophagus. Assessment: Abdominal pain Gastroparesis History of esophagitis Plan: Discussed with Dr. Sumit Armstrong 5 mg 4 times a day Zofran and Protonix Stool for bacterial culture and C diff Continue antibiotic Possible EGD to be considered if patient's symptoms persist to be done on Wednesday otherwise outpatient follow-up for possible EGD as needed Thank you for this consult Date of Service: Apr 11, 2025 Billing Provider: RHIANNA KINCAID Common Visit Codes: CONSULT ONLY Consultation Codes: [id number] CONSULT <60MIN RHIANNA KINCAID Apr 11, 2025 13:15
[2025-04-11 19:50] VITALS: RESP 19; O2SAT 97
[2025-04-11 22:10] VITALS: PULSE 88; RESP 15; O2SAT 93
[2025-04-11] MEDS ORDERED: METO5TAB67 PO (22:44)
[2025-04-11] MEDS ORDERED: LISI40TA16 PO (22:44)
[2025-04-11] MEDS ORDERED: LAM100T PO (22:44)
[2025-04-11] MEDS ORDERED: LORA-1121 PO (22:44)
[2025-04-11] MEDS ORDERED: METF-370 PO (22:44)
[2025-04-11] MEDS ORDERED: DULO30CA PO (22:44)
[2025-04-11] MEDS ORDERED: TIZA4CAP PO (22:44)
[2025-04-11] MEDS ORDERED: QUET50TA PO (22:44)
[2025-04-11] MEDS ORDERED: OMEP20TA PO (22:44)
[2025-04-11] MEDS ORDERED: PNEUMOCOCCAL VACC POLYS 25 MCG/0.5 ML VIAL IM ONE (22:45)
[2025-04-12 01:00] VITALS: BP 105/69; PULSE 85; RESP 18; TEMP 97.9; O2SAT 90
[2025-04-12 05:00] VITALS: BP_SYST 113; BP_SYST 117; BP_DIAS 68; BP_DIAS 74; PULSE 85; PULSE 89; RESP 17; RESP 18; TEMP 97.8; TEMP 98.1; O2SAT 89; O2SAT 99
[2025-04-12 06:18] LABS: Hematocrit 43.4 % (36.0-46.0); Hemoglobin 14.4 g/dL (12.2-16.2); Mean Corpuscular Hemoglobin 26.3 pg (28.0-32.0); Mean Corpuscular Volume 79.4 fL (80.0-100.0); Nucleated Red Blood Cells % 0.1 %
[2025-04-12 06:31] LABS: Chloride 104 mmol/L (98-107); Sodium 141 mmol/L (136-145)
[2025-04-12 06:32] LABS: Anion Gap 11 (5-15); Calcium 10.4 mg/dL (8.7-10.4); Carbon Dioxide 26 mmol/L (20-31)
[2025-04-12 06:37] LABS: BUN/Creatinine Ratio 18.4 (10.0-20.0); Blood Urea Nitrogen 18 mg/dL (9-23); Glucose 102 mg/dL (74-106)
[2025-04-12 06:43] LABS: Potassium 3.4 mmol/L (3.5-5.1)
[2025-04-12 09:00] VITALS: BP 116/66; PULSE 88; RESP 18; TEMP 96.9; O2SAT 97
--- NOTE | 2025-04-12 12:04 | DVHPN2 ---
Subjective The patient is seen and examined at bedside. The patient complained of severe abdominal pain and anxiety. She said she takes Ativan and Seroquel at home. Reviewed: Care Plan, H&P, Labs, Medications, Previous Orders, Radiology Changes from previous H/P or p: No Changes Objective Vitals Vital Signs Date Time Temp Pulse Resp B/P (MAP) Pulse Ox O2 Delivery O2 Flow Rate FiO2 04/12/25 10:32 116/62 04/12/25 09:00 96.9 88 18 97 96.9 04/11/25 22:10 Room Air* 0 21 Intake/Output Intake and Output 04/12/25 07:00 Intake Total 300 ml Balance 300 ml Intake Oral 300 ml # Voids 3 General Appearance: Alert, Oriented X3, Cooperative, mild distress HEENT: Atraumatic, PERRLA, EOMI, Mucous membr. moist/pink Neck: Supple Lungs: Clear to auscultation, Normal air movement Cardiovascular: Regular rate, Normal S1, Normal S2, No murmurs, Gallops, Rubs Abdomen: Normal bowel sounds, Soft, No tenderness Neuro: Cranial nerves 3-12 NL Psych/Mental Status: Mental status NL Medications Current Medications Medications Dose Ordered Sig/Nikhil Route Start Time Stop Time Status Last Admin Dose Admin Lisinopril 40 mg DAILY PO 04/11/25 10:00 04/12/25 10:32 40 MG Lamotrigine 50 mg Q12HR PO 04/11/25 10:00 04/12/25 10:32 50 MG Metoclopramide HCl 5 mg Q8HR IV 04/11/25 06:00 04/12/25 05:23 5 MG Diagnostic Test (Pha) 1 strip ACHS 04/11/25 07:00 04/12/25 11:43 1 STRIP Insulin Human Regular ACHS SC 04/11/25 07:00 04/11/25 07:36 2 UNITS Dextrose 50 ml UD PRN IV 04/11/25 04:00 Acetaminophen/ Hydrocodone Bitart 1 tab Q4HP PRN PO 04/11/25 04:00 04/12/25 11:48 1 TAB Temazepam 15 mg QHSP PRN PO 04/11/25 04:00 Ondansetron HCl 4 mg Q4HP PRN IV 04/11/25 04:00 Acetaminophen 650 mg Q6HP PRN PO 04/11/25 04:00 Pantoprazole Sodium 40 mg DAILY IV 04/11/25 10:00 04/12/25 10:31 40 MG Loperamide HCl 2 mg PRN PRN PO 04/11/25 04:00 04/11/25 07:32 2 MG Laboratory Results Laboratory Tests 04/12/25 05:27 Chemistry Test 04/12/25 05:27 Calcium Level 10.4 mg/dL (8.7-10.4) Urinalysis Test 04/11/25 00:35 Urine Color Yellow (Yellow) Urine Clarity Ex.turbid (Clear) Urine pH 6.0 (5.0-9.0) Urine Specific [place] 1.032 (1.001-1.035) Urine Protein 2+ (Negative) H Urine Ketones 2+ (Negative) H Urine Blood 1+ /uL (Negative) H Urine Nitrite Negative (Negative) Urine Bilirubin 1+ (Negative) H Urine Urobilinogen 4 mg/dL (Negative) H Urine Leukocyte Esterase Trace /uL (Negative) Urine RBC 65 /hpf (0 - 4) Urine Microscopic WBC 22 /HPF (0-5) H Urine Squamous Epithelial Cells Mod /hpf (<5) Urine Bacteria None seen /hpf (None Seen) Urine Hyaline Casts Many /lpf (0 - 2) Urine Mucus Few (None Seen) Urine Glucose Normal mg/dL (Normal) Microbiology Microbiology Date/Time Source Procedure Growth Status 04/10/25 21:47 Blood Blood Culture - Preliminary NO GROWTH AFTER 24 HOURS OF INCUBATION. Resulted Labs and/or images reviewed: Labs reviewed by me Assessment/Plan Assessment/Plan Acute abdominal pain History of gastritis Gastroparesis Diabetes mellitus Acute kidney injury Electrolyte imbalance Leukocytosis Urinary tract infection Anxiety Continuing current management. Continuing with pain medication. I will start her on Ativan 1 mg p.o. q.4 PRN for anxiety Her home medication dosage of Seroquel is 400 mg at bedtime which is very high dosage. We will try at 100 mg 1st. Continuing IV antibiotic Appreciate GI specialist input Waiting for EGD This medical document was created using an electronic medical record system with [employer] direct computerized dictation system. Although this document has been carefully reviewed, there may still be some phonetic and typographical errors. These areas are purely typographical due to imperfections of the software programs, and do not reflect any compromise in the patient's medical care. Plan discussed with: Patient Date of Service: Apr 12, 2025 Billing Provider: NACHO BELL MD Common Visit Codes: [id number] INP/OBS CARE(HIGH) NACHO BELL MD Apr 12, 2025 12:03
[2025-04-12] MEDS ORDERED: LORazepam 0.5 MG TAB PO PRN (12:45)
[2025-04-12 13:00] VITALS: BP 129/83; PULSE 91; RESP 20; TEMP 97.5; O2SAT 95
[2025-04-12] MEDS: LORazepam 0.5 MG TAB PO PRN (14:40)
[2025-04-12 16:44] VITALS: BP 109/60; PULSE 89; RESP 18; TEMP 98.1; O2SAT 96
[2025-04-12] MEDS: METOCLOPRAMIDE HCL 10 MG TAB PO SCH (16:48)
[2025-04-12] MEDS ORDERED: METOCLOPRAMIDE HCL 5 MG PO SCH (18:00)
[2025-04-12 21:00] VITALS: BP_SYST 107; BP_SYST 98; BP_DIAS 59; PULSE 74; PULSE 83; RESP 17; RESP 18; TEMP 97.4; O2SAT 90; O2SAT 98
--- NOTE | 2025-04-12 21:42 | DVHPN2 ---
Progress Note - Dictate Date Seen: Apr 12, 2025 (Late entryPatient seen at bedside at 10:00 a.m.) Medical Necessity Reason Pt with a Central, PICC or Fol: No Subjective Patient is resting comfortably She has no nausea and vomiting or abdominal pain. Patient has been diagnosed with UTI and is on IV antibiotics Her last endoscopy was in [place] in September of 2024 and it had shown mild gastritis She also had a recent colonoscopy in [place] which had just shown some hemorrhoids but it was otherwise normal examination vital signs Vital Sign Date Time Temp Pulse Resp B/P (MAP) Pulse Ox O2 Delivery O2 Flow Rate FiO2 04/12/25 21:00 97.4 83 17 107/59 (75) 90 97.4 04/12/25 20:00 Room Air* 0 21 Total Intake and Output 04/11/25 04/11/25 04/12/25 15:00 23:00 07:00 Intake Total 300 ml Balance 300 ml medications Current Medications Medications Dose Ordered Sig/Nikhil Route Start Time Stop Time Status Last Admin Dose Admin Metoclopramide HCl 5 mg Q8HR IV 04/11/25 06:00 04/12/25 14:40 5 MG Diagnostic Test (Pha) 1 strip ACHS 04/11/25 07:00 04/12/25 16:25 1 STRIP Insulin Human Regular ACHS SC 04/11/25 07:00 04/12/25 12:19 2 UNITS Dextrose 50 ml UD PRN IV 04/11/25 04:00 Acetaminophen/ Hydrocodone Bitart 1 tab Q4HP PRN PO 04/11/25 04:00 04/12/25 19:42 1 TAB Temazepam 15 mg QHSP PRN PO 04/11/25 04:00 Ondansetron HCl 4 mg Q4HP PRN IV 04/11/25 04:00 Acetaminophen 650 mg Q6HP PRN PO 04/11/25 04:00 Pantoprazole Sodium 40 mg DAILY IV 04/11/25 10:00 04/12/25 10:31 40 MG Loperamide HCl 2 mg PRN PRN PO 04/11/25 04:00 04/11/25 07:32 2 MG Duloxetine HCl 30 mg BID PO 04/12/25 22:00 Lamotrigine 100 mg DAILY PO 04/13/25 10:00 Lorazepam 0.5 mg BID PRN PO 04/12/25 12:45 Cancel Patient Own Medication 40 mg DAILY PO 04/13/25 10:00 UNV Patient Own Medication 5 mg Q6HR PO 04/12/25 18:00 UNV Patient Own Medication 40 mg DAILY PO 04/13/25 10:00 UNV Patient Own Medication 1 cap BIDP PRN PO 04/12/25 12:45 Quetiapine Fumarate 100 mg HS PO 04/12/25 22:00 Lorazepam 1 mg Q4HPRN PRN PO 04/12/25 12:45 04/12/25 19:41 1 MG Pantoprazole Sodium 40 mg DAILY PO 04/13/25 10:00 Lisinopril 40 mg DAILY PO 04/13/25 10:00 Metoclopramide HCl 5 mg Q6HR PO 04/12/25 18:00 objective Gen: 49-year-old female in no distress; obese Skin: Warm, dry, normal color and texture, no rash. HEENT: Normocephalic atraumatic, mucous membranes moist and pink. Pulmonary: Clear to auscultation and percussion bilaterally. Cardiac: Regular rate and rhythm. No murmur Abdomen: Soft, lower abdominal tenderness, nondistended, bowel sounds present all 4 quadrants, no guarding, no rigidity, no organomegaly. Extremities: No cyanosis, clubbing, no edema Neuro: Cranial nerves II through XII grossly intact, normal affect and speech, no focal motor deficits. laboratory and microbiology Laboratory Tests 04/12/25 05:27 Test 04/12/25 05:27 Range/Units Serum Glucose 102 74-106 mg/dL CT Abd Pelvis IMPRESSION: 1. No acute abdominal or pelvic findings. 2. Hepatomegaly. 3. Small hiatal hernia and fluid-filled distal esophagus. Problems(with codes): (1) Gastritis (2) Abdominal pain (3) Leukocytosis (4) UTI (urinary tract infection) Prognosis PLAN Advance diet as tolerated IV ppi, IV Zofran IV antibiotics for UTI, check urine culture Discussed with patient and she would like to proceed with a repeat endoscopy to re-evaluate the abnormal finding GI tract imaging Dietary Evaluation Review Comments: 1.Advance diet to CCHO-60 when medically feasible 2.Wt management after D/C Expected Outcomes/Goals: controlled blood sugars, gradual wt loss Plan discussed with: Patient, Other LUIS ANGEL ROBLES MD Apr 12, 2025:42
[2025-04-13 01:00] VITALS: BP 106/71; PULSE 95; RESP 17; TEMP 97.7; O2SAT 96
[2025-04-13 05:00] VITALS: BP 141/81; PULSE 101; RESP 18; TEMP 99.6; O2SAT 98
[2025-04-13 09:00] VITALS: BP 124/78; PULSE 92; RESP 17; TEMP 96; O2SAT 96
[2025-04-13] MEDS: lamoTRIgine 100 MG TAB PO SCH (10:00)
[2025-04-13] MEDS ORDERED: PATIENTS OWN MEDICATION (Lisinopril 40 MG) PO SCH (10:00)
[2025-04-13] MEDS: LISINOPRIL 20 MG TAB PO SCH (10:00)
[2025-04-13] MEDS: PANTOPRAZOLE 40 MG TAB PO SCH (10:00)
[2025-04-13] MEDS ORDERED: PATIENTS OWN MEDICATION (Omeprazole (Gnp Omeprazole) 40 MG) PO SCH (10:00)
[2025-04-13] MEDS ORDERED: fentaNYL CITRATE 100 MCG/2 ML VL ONE (11:18)
[2025-04-13] MEDS ORDERED: LIDOCAINE 2% (LOCAL ANESTH.) PF 5ml SDV ONE (11:18)
[2025-04-13] MEDS ORDERED: MIDAZOLAM HCL 2MG/2ML 2ml VIAL (1mg/ml) ONE (11:18)
[2025-04-13] MEDS ORDERED: ONDANSETRON HCL 4 MG/2 ML VIAL ONE (11:18)
[2025-04-13] MEDS ORDERED: GLYCOPYRROLATE 0.2 MG/ML 1ML VIAL ONE (11:18)
[2025-04-13] MEDS ORDERED: PROPOFOL 10 MG/ML 20 ML IV ONE (11:18)
[2025-04-13 11:39] VITALS: PULSE 107; RESP 16; O2SAT 94
--- NOTE | 2025-04-13 11:44 | DVHOP2 ---
Operative Report DATE OF OPERATION: 04/13/25 PROCEDURE: Upper Endoscopy with biopsy. PREOPERATIVE INDICATION: The patient is a 49 -year-old female undergoing endoscopy for abnormal finding GI tract imaging POSTOPERATIVE DIAGNOSES: 1. 2-3 cm sliding-type hiatal hernia with the acute grade B linear erosive esophagitis with linear ulcers extending into the distal 7-8 cm of the esophagus 2. Mild gastroduodenitis otherwise normal examination up to the 2nd and 3rd part of the duodenum, no bleeding, no gastroparesis PROCEDURE PERFORMED BY: Maya Arana GI NURSE: Rajeev SCOPE: Olympus videoendoscope. ASA CLASS: 3. PREOPERATIVE MEDICATIONS: Mac sedation, Dr. Minor PROCEDURE IN DETAIL: After obtaining an informed consent, the patient was placed on left lateral decubitus position. The patient was then sedated with the above medications. A bite block was placed between her teeth. The endoscope was then passed through the oropharynx, into the esophagus, and through the stomach and pylorus up to the second and third part of the duodenum. The endoscope was then withdrawn. The 2nd and 3rd part of the duodenal were normal. Duodenal bulb showed mild duodenitis with hyperemia The pre-pyloric area and antrum and body showed mild gastritis with hyperemia erythema. Duodenal and gastric biopsies were obtained On retroflexion the fundus cardia and angularis were normal. The endoscope was then withdrawn into distal esophagus Patient had a 2-3 cm sliding-type hiatal hernia with the acute grade B linear erosive esophagitis with linear ulcers extending into the distal 7-8 cm of the esophagus Distal esophageal biopsies were obtained. The remaining distal and proximal esophagus and oropharynx were unremarkable The patient tolerated the procedure well without difficulty. COMPLICATIONS : None SPECIMENS: Duodenal biopsies Gastric biopsies Esophageal biopsies DISPOSITION: Transfer back to the floor Stable PLAN: 1. Await for biopsy result 2. Will place pt on Protonix 40 mg bid 3. Carafate suspension 1 g p.o. 4 times a day 4. Resume full liquid diet advance to soft mechanical 5. Outpatient follow up with GI Services in 2-4 weeks after discharge for landon oing management of chronic GERD MAYA ARANA MD Apr 13, 2025 11:44
[2025-04-13] MEDS ORDERED: HYDROmorphone HCL 2 MG/ML VL/or syr IV PRN (11:45)
--- NOTE | 2025-04-13 12:28 | DVHPN2 ---
Subjective The patient is seen and examined at bedside. The patient complained of severe abdominal pain and anxiety. She said she takes Ativan and Seroquel at home. Reviewed: Care Plan, H&P, Labs, Medications, Previous Orders, Radiology Objective Vitals Vital Signs Date Time Temp Pulse Resp B/P (MAP) Pulse Ox O2 Delivery O2 Flow Rate FiO2 04/13/25 11:39 Mask 6.0 04/13/25 11:39 107 16 94 04/13/25 11:39 97.1 102/64 (77) 97.1 04/13/25 08:19 21 Intake/Output Intake and Output 04/13/25 07:00 Intake Total 630 ml Balance 630 ml Intake Oral 630 ml # Voids 5 # Bowel Movements 1 General Appearance: Alert, Oriented X3, Cooperative, mild distress HEENT: Atraumatic, PERRLA, EOMI, Mucous membr. moist/pink Neck: Supple Lungs: Clear to auscultation, Normal air movement Cardiovascular: Regular rate, Normal S1, Normal S2, No murmurs, Gallops, Rubs Abdomen: Normal bowel sounds, Soft, No tenderness Neuro: Cranial nerves 3-12 NL Psych/Mental Status: Mental status NL Medications Current Medications Medications Dose Ordered Sig/Nikhil Route Start Time Stop Time Status Last Admin Dose Admin Metoclopramide HCl 5 mg Q8HR IV 04/11/25 06:00 04/13/25 06:19 5 MG Diagnostic Test (Pha) 1 strip ACHS 04/11/25 07:00 04/12/25 16:25 1 STRIP Insulin Human Regular ACHS SC 04/11/25 07:00 04/12/25 12:19 2 UNITS Dextrose 50 ml UD PRN IV 04/11/25 04:00 Acetaminophen/ Hydrocodone Bitart 1 tab Q4HP PRN PO 04/11/25 04:00 04/12/25 19:42 1 TAB Temazepam 15 mg QHSP PRN PO 04/11/25 04:00 Ondansetron HCl 4 mg Q4HP PRN IV 04/11/25 04:00 Acetaminophen 650 mg Q6HP PRN PO 04/11/25 04:00 Pantoprazole Sodium 40 mg DAILY IV 04/11/25 10:00 04/12/25 10:31 40 MG Loperamide HCl 2 mg PRN PRN PO 04/11/25 04:00 04/11/25 07:32 2 MG Duloxetine HCl 30 mg BID PO 04/12/25 22:00 04/12/25 21:39 30 MG Lamotrigine 100 mg DAILY PO 04/13/25 10:00 Lorazepam 0.5 mg BID PRN PO 04/12/25 12:45 Cancel Patient Own Medication 40 mg DAILY PO 04/13/25 10:00 UNV Patient Own Medication 5 mg Q6HR PO 04/12/25 18:00 UNV Patient Own Medication 40 mg DAILY PO 04/13/25 10:00 UNV Patient Own Medication 1 cap BIDP PRN PO 04/12/25 12:45 Quetiapine Fumarate 100 mg HS PO 04/12/25 22:00 04/12/25 21:40 100 MG Lorazepam 1 mg Q4HPRN PRN PO 04/12/25 12:45 04/12/25 19:41 1 MG Lisinopril 40 mg DAILY PO 04/13/25 10:00 Metoclopramide HCl 5 mg Q6HR PO 04/12/25 18:00 04/13/25 06:19 5 MG Hydromorphone HCl 0.5 mg Q10M PRN IV 04/13/25 11:45 04/13/25 12:26 UNV Pantoprazole Sodium 40 mg BID PO 04/13/25 22:00 UNV Sucralfate 1 gm QID@0600,1130,1700,2200 PO 04/13/25 17:00 UNV Laboratory Results Laboratory Tests 04/12/25 05:27 Urinalysis Test 04/11/25 00:35 Urine Color Yellow (Yellow) Urine Clarity Ex.turbid (Clear) Urine pH 6.0 (5.0-9.0) Urine Specific [place] 1.032 (1.001-1.035) Urine Protein 2+ (Negative) H Urine Ketones 2+ (Negative) H Urine Blood 1+ /uL (Negative) H Urine Nitrite Negative (Negative) Urine Bilirubin 1+ (Negative) H Urine Urobilinogen 4 mg/dL (Negative) H Urine Leukocyte Esterase Trace /uL (Negative) Urine RBC 65 /hpf (0 - 4) Urine Microscopic WBC 22 /HPF (0-5) H Urine Squamous Epithelial Cells Mod /hpf (<5) Urine Bacteria None seen /hpf (None Seen) Urine Hyaline Casts Many /lpf (0 - 2) Urine Mucus Few (None Seen) Urine Glucose Normal mg/dL (Normal) Microbiology Microbiology Date/Time Source Procedure Growth Status 04/12/25 15:30 Urine - Midstream Clean Catch Urine Culture - Preliminary Resulted 04/12/25 11:15 Stool Stool Culture - Preliminary Resulted 04/12/25 11:15 Stool Shiga Toxin I & II Pending Resulted 04/10/25 21:47 Blood Blood Culture - Preliminary NO GROWTH AFTER 48 HOURS OF INCUBATION. Resulted Assessment/Plan Assessment/Plan Acute abdominal pain History of gastritis Gastroparesis Diabetes mellitus Acute kidney injury Electrolyte imbalance Leukocytosis Urinary tract infection Anxiety Continuing current management. Continuing with pain medication. I will start her on Ativan 1 mg p.o. q.4 PRN for anxiety Her home medication dosage of Seroquel is 400 mg at bedtime which is very high dosage. We will try at 100 mg 1st. Continuing IV antibiotic Appreciate GI specialist input Waiting for EGD This medical document was created using an electronic medical record system with [employer] direct computerized dictation system. Although this document has been carefully reviewed, there may still be some phonetic and typographical errors. These areas are purely typographical due to imperfections of the software programs, and do not reflect any compromise in the patient's medical care. My Orders Orders - NACHO BELL MD Procedure Category Date Status Time Duloxetine Hcl PHA 04/12/25 In Process Capsule (Cymbalta 22:00 Lamotrigine Tablet PHA 04/13/25 In Process (Lamictal Tablet) 10:00 (Nf) Tizanidine PHA 04/12/25 In Process Hydrochloride 12:45 Quetiapine Fumarate PHA 04/12/25 In Process Tablet (Seroquel Tab 22:00 Lorazepam Tablet PHA 04/12/25 In Process (Ativan Tablet) 12:45 Lisinopril Tablet PHA 04/13/25 In Process (Zestril Tablet) 10:00 Metoclopramide Tablet PHA 04/12/25 In Process (Reglan Tablet) 18:00 NACHO BELL MD Apr 13, 2025 12:28
[2025-04-13 13:00] VITALS: BP 108/75; PULSE 102; RESP 16; TEMP 97.9; O2SAT 96
[2025-04-13] MEDS ORDERED: PANT40TA2 PO (13:03)
[2025-04-13] MEDS ORDERED: HYDR-4902 PO (13:03)
[2025-04-13] MEDS ORDERED: SUCR1SUS26 PO (13:03)
[2025-04-13] MEDS ORDERED: LEVO500T91 PO (13:03)
[2025-04-13] MEDS ORDERED: LORA-655 PO (13:03)
--- NOTE | 2025-04-13 13:05 | DVHDS2 ---
Discharge Summary Date of Admission Apr 11, 2025 at 03:47 Date of Discharge: Apr 13, 2025 Admitting Diagnosis Acute abdominal pain History of gastritis Gastroparesis Diabetes mellitus Acute kidney injury Electrolyte imbalance Leukocytosis Urinary tract infection Anxiety Labs/Diagnostic Data: Laboratory Results Test 04/13/25 06:08 04/12/25 05:27 04/11/25 00:35 04/11/25 00:30 POC Glucose 135 mg/dl (70-106) White Blood Count 8.7 10^3/uL (4.4-10.8) Red Blood Count 5.46 10^6/uL (4.0-5.20) Hemoglobin 14.4 g/dL (12.2-16.2) Hematocrit 43.4 % (36.0-46.0) Mean Corpuscular Volume 79.4 fL (80.0-100.0) Mean Corpuscular Hemoglobin 26.3 pg (28.0-32.0) Mean Corpuscular Hemoglobin Concent 33.1 g/dL (32.0-36.0) Red Cell Distribution Width 17.8 % (11.8-14.3) Platelet Count 415 10^3/uL (140-450) Mean Platelet Volume 7.5 fL (6.9-10.8) Neutrophils (%) (Auto) 60.5 % (37.0-80.0) Lymphocytes (%) (Auto) 29.3 % (10.0-50.0) Monocytes (%) (Auto) 8.2 % (0.0-12.0) Eosinophils (%) (Auto) 1.6 % (0.0-7.0) Basophils (%) (Auto) 0.4 % (0.0-2.0) Neutrophils # (Auto) 5.3 10 ^3/uL (1.6-8.6) Lymphocytes # (Auto) 2.6 10 ^3/uL (0.4-5.4) Monocytes # (Auto) 0.7 10 ^3/uL (0-1.3) Eosinophils # (Auto) 0.1 10 ^3/uL (0-0.8) Basophils # (Auto) 0 10 ^3/uL (0-0.2) Nucleated Red Blood Cells 0.1 % Sodium Level 141 mmol/L (136-145) Potassium Level 3.4 mmol/L (3.5-5.1) Chloride Level 104 mmol/L (98-107) Carbon Dioxide Level 26 mmol/L (20-31) Anion Gap 11 (5-15) Blood Urea Nitrogen 18 mg/dL (9-23) Creatinine 0.98 mg/dL (0.550-1.02) Glomerular Filtration Rate Calc 70 mL/min (>90) BUN/Creatinine Ratio 18.4 (10.0-20.0) Serum Glucose 102 mg/dL (74-106) Calcium Level 10.4 mg/dL (8.7-10.4) Urine Color Yellow (Yellow) Urine Clarity Ex.turbid (Clear) Urine pH 6.0 (5.0-9.0) Urine Specific [place] 1.032 (1.001-1.035) Urine Protein 2+ (Negative) Urine Ketones 2+ (Negative) Urine Blood 1+ /uL (Negative) Urine Nitrite Negative (Negative) Urine Bilirubin 1+ (Negative) Urine Urobilinogen 4 mg/dL (Negative) Urine Leukocyte Esterase Trace /uL (Negative) Urine RBC 65 /hpf (0 - 4) Urine Microscopic WBC 22 /HPF (0-5) Urine Squamous Epithelial Cells Mod /hpf (<5) Urine Bacteria None seen /hpf (None Seen) Urine Hyaline Casts Many /lpf (0 - 2) Urine Mucus Few (None Seen) Urine Glucose Normal mg/dL (Normal) Influenza Type A Antigen Negative (Negative) Influenza Type B Antigen Negative (Negative) SARS-CoV-2 Antigen (Rapid) Negative (NEGATIVE) Test 04/11/25 00:22 04/10/25 21:47 Troponin I High Sensitivity 4 ng/L (</=34) Lactic Acid Level 1.4 mmol/L (0.4-2.0) Magnesium Level 1.9 mg/dL (1.6-2.6) Total Bilirubin 0.4 mg/dL (0.2-1.0) Aspartate Amino Transferase (AST) 29 U/L (13-40) Alanine Aminotransferase (ALT) 33 U/L (7-40) Alkaline Phosphatase 120 U/L (46-116) B-Type Natriuretic Peptide 3.46 pg/mL (0-100) Total Protein 8.7 g/dL (5.7-8.2) Albumin 5.5 g/dL (3.2-4.8) Lipase 43 U/L (12-53) Other Laboratory Tests 04/12/25 05:27 Brief Hx & Hospital Course: This is a 49 years old female come to emergency department because severe abdominal pain. The patient had a history of gastroparesis. The patient had intractable nausea and vomiting and diarrhea with chills for three days. No melena, no hematemesis. The patient was admitted. Workup was done. CT abdomen pelvis showed: No acute abdominal or pelvic findings. Hepatomegaly. Small hiatal hernia and fluid-filled distal esophagus. The patient subsequently had EGD done by GI specialist. It showed: 2-3 cm sliding-type hiatal hernia with the acute grade B linear erosive esophagitis with linear ulcers extending into the distal 7-8 cm of the esophagus. Mild gastroduodenitis otherwise normal examination up to the 2nd and 3rd part of the duodenum, no bleeding, no gastroparesis. Biopsy was taken from the esophagus the duodenal and gastric area. The patient was advised to take Protonix 40 mg p.o. b.i.d. and Carafate a 1000 mg 4 times per days. Follow up with GI specialist, Dr. Arana in 2-4 weeks for management of her chronic GERD. Follow up with primary care physician 1-2 weeks. Activity as tolerated. Diet per home diet. Avoid NSAIDs, coffee, spicy food. Physical exam: HEENT: Normocephalic atraumatic pupils equal react to light and accommodation. Extraocular muscles intact, conjunctiva pink, oropharynx moist, no thrush, no exudate. Lymphatic: No lymphadenopathy Cardiovascular exam: S1, S2 was heard. No murmurs, rubs, gallops Lung: Clear on auscultation bilaterally, no wheeze, rale, rhonchi. GI: Abdominal soft, nondistended, nontenderness, positive bowel sounds. Extremity: No crepitus, cyanosis, edema. Pedal pulses present bilateral. Full range of motion. Skin: Normal turgor, no rash. Psych: Alert, oriented x3. Neurology: No focal deficits, cranial nerve II to XII grossly intact. This medical document was created using an electronic medical record system with [employer] direct computerized dictation system. Although this document has been carefully reviewed, there may still be some phonetic and typographical errors. These areas are purely typographical due to imperfections of the software programs, and do not reflect any compromise in the patient's medical care. Condition at Discharge: Stable Final Diagnosis/Problems List Acute abdominal pain History of gastritis Gastroparesis Diabetes mellitus Acute kidney injury Electrolyte imbalance Leukocytosis Urinary tract infection Anxiety Discharge Disposition: Home Discharge Instruct/Medications Diet: Regular Activity: No Restrictions, As Tolerated Follow Up/Referral: pcp 1-2 weeks GI specialist per schedule. May need another EGD in 3-6 months Medications: see med list Scheduled Duloxetine Hcl (Cymbalta), 30 MG PO BID, (Reported) Lamotrigine (Lamictal), 1 TAB PO DAILY, (Reported) Levofloxacin Hemihydrate (Levaquin 500 Mg), 1 TAB PO DAILY Lisinopril (Lisinopril), 40 MG PO DAILY, (Reported) Metformin Hydrochloride (Metformin Hcl), 500 MG PO BID, (Reported) Metoclopramide Hcl (Reglan), 5 MG PO Q6HR, (Reported) Omeprazole (Gnp Omeprazole), 40 MG PO DAILY, (Reported) Ondansetron Odt 4MG Tab (Zofran Po), 4 MG PO BS Pantoprazole Sodium Sesquihydr (Protonix), 40 MG PO BID Quetiapine Fumerate (Seroquel), 400 MG PO HS, (Reported) Sucralfate (Carafate Susp), 1 GM PO QID@0600,1130,1700,2200 Scheduled PRN Hydrocodone-Acetaminophen (Hydrocodone Bitartrate/AC 5-325 mg), 1 TAB PO Q6HPRN PRN Lorazepam (Ativan Tablet), 1 TAB PO BID PRN for ANXIETY, (Reported) Lorazepam (Ativan), 1 TAB PO BID PRN Tizanidine Hydrochloride (Zanaflex), 1 CAP PO BID PRN for FOR MUSCLE SPASM, (Reported) Discharge Statement: "Patient was advised to return to the ER or call 911 if any headaches, dizziness, shortness of breath, chest pain, abdominal pain, bleeding, fevers, or worsening of medical condition. Patient was counseled about treatment plan, medications, possible side effects, patientverbalized understanding. All questions were answered to the best of my ability. This discharge took greater then 30 minutes in planning, reviewing documentation, counseling the patient, and discussing with other team members." ASSESSMENT ASSESSMENT Assessment gastritis and esophageal ulcer UTI Date of Service: Apr 13, 2025 Billing Provider: NACHO BELL MD Common Visit Codes: 90392-MEX/OBS DISCH DAY >30min NACHO BELL MD Apr 13, 2025 13:05
[2025-04-13 15:17] VITALS: BP 116/62; PULSE 92; RESP 18; TEMP 36.6; O2SAT 98
[2025-04-13] MEDS ORDERED: SUCRALFATE 1 GM/10 ML ORAL SUSP PO SCH (17:00)
[2025-04-13] MEDS ORDERED: PANTOPRAZOLE 40 MG TAB PO SCH (22:00)
== END 2025-04-13 15:57 | disposition home or self-care (01) | DRG 380 ==
LOC: EDBD 20:40 → ER 20:40 → OVERFLOW 04-11 03:47 → EAST 04-11 20:55
PROVIDERS: ADMIT Internal Medicine; ATTEND Internal Medicine
PROC: 0DB68ZX Excision of Stomach, Via Natural or Artificial Opening Endoscopic, Diagnostic (ICD-10-PCS; 2025-04-13)
PROC: 0DB38ZX Excision of Lower Esophagus, Via Natural or Artificial Opening Endoscopic, Diagnostic (ICD-10-PCS; 2025-04-13)
PROC: 0DB98ZX Excision of Duodenum, Via Natural or Artificial Opening Endoscopic, Diagnostic (ICD-10-PCS; principal; 2025-04-13 11:28)
DX: K22.10 Ulcer of esophagus without bleeding (principal); N17.0 Acute kidney failure with tubular necrosis; R65.11 Systemic inflammatory response syndrome (SIRS) of non-infectious origin with acute organ dysfunction; N39.0 Urinary tract infection, site not specified; E11.43 Type 2 diabetes mellitus with diabetic autonomic (poly)neuropathy; I10 Essential (primary) hypertension; K29.80 Duodenitis without bleeding; K29.70 Gastritis, unspecified, without bleeding; K29.90 Gastroduodenitis, unspecified, without bleeding; K31.84 Gastroparesis; K44.9 Diaphragmatic hernia without obstruction or gangrene; Z20.822 Contact with and (suspected) exposure to COVID-19; Z96.653 Presence of artificial knee joint, bilateral; F41.9 Anxiety disorder, unspecified; E87.8 Other disorders of electrolyte and fluid balance, not elsewhere classified; Z88.5 Allergy status to narcotic agent; Z90.49 Acquired absence of other specified parts of digestive tract
CPT/HCPCS: 36415; 43239; 71045; 74176; 80048; 80053; 81001; 82962; 83605; 83690; 83735; 83880; 84484; 85025; 86850; 86900; 86901; 87040; 87045; 87086; 87426; 87427; 87493; 87804; 93005; 96361; 96374; G0378; J1815; J2003; J2250; J2405; J2470; J2704